=== PATIENT | female | born 1955 | race African-American/Black ===

== ENCOUNTER → 2024-08-28 | Day surgery (SDC) | payer MEDICARE ==
[2024-08-27 10:42] LABS: BASOPHILS % 0.4 % (0.0-1.0); EOSINOPHILS # (AUTO) 0.1 (0.0-0.4); EOSINOPHILS % 1.3 % (0.0-6.0); HEMATOCRIT 42.4 % (34.2-44.1); HEMOGLOBIN 13.4 g/dL (12.0-16.0); LYMPHOCYTES # (AUTO) 2.2 (1.0-3.2); LYMPHOCYTES % 31.1 % (18.0-39.1); MEAN CORPUSCULAR HEMOGLOBIN 28.5 pg (28-32); MEAN CORPUSCULAR HGB CONC 31.6 g/dL (31-35); MEAN CORPUSCULAR VOLUME 90.2 fL (81-99); MONOCYTES # (AUTO) 0.4 (0.2-0.8); MONOCYTES % 5.6 % (4.4-11.3); NEUTROPHILS # (AUTO) 4.2 (2.1-6.9); PLATELET COUNT 269 x10e3/uL (140-360); RED CELL DISTRIBUTION WIDTH 13.9 % (11.7-14.4); WHITE BLOOD COUNT 6.92 x10e3/uL (4.8-10.8)
[~2024-08-28] MED LIST: HYDROCHLOROTHIA25 MG PO; LATANOPROST2.5 ML OU; LIDOCAINE HCL 2% LOCAL INJ 5 ML SDV VIAL INJ ONE; MONTELUKAST SOD10 MG PO; PROPOFOL IV EMULSION 10 MG/ML 20 ML VIAL ONE; TRELEGY ELLIPT1 EACH INH
[2024-08-28] MEDS: LACTATED RINGER'S 1,000 ML ONE (11:03)
[2024-08-28 11:40] VITALS: TEMP 97.2
[2024-08-28 12:00] VITALS: BP 147/87; PULSE 83; RESP 18; O2SAT 99
== END | disposition home or self-care (01) ==
LOC: OR 09:32
PROVIDERS: ATTEND Internal Medicine Gastroenterology
DX: Z12.11 Encounter for screening for malignant neoplasm of colon (principal); D12.2 Benign neoplasm of ascending colon; Z71.3 Dietary counseling and surveillance; Z78.9 Other specified health status; Z68.35 Body mass index [BMI] 35.0-35.9, adult; D17.5 Benign lipomatous neoplasm of intra-abdominal organs; K57.30 Diverticulosis of large intestine without perforation or abscess without bleeding; K64.8 Other hemorrhoids; J45.909 Unspecified asthma, uncomplicated; R32 Unspecified urinary incontinence; F99 Mental disorder, not otherwise specified; Z01.810 Encounter for preprocedural cardiovascular examination; Z01.812 Encounter for preprocedural laboratory examination; Z79.899 Other long term (current) drug therapy; Z86.11 Personal history of tuberculosis
CPT/HCPCS: 36415; 45380; 85025; 93005; J2003; J2704; J7121